=== PATIENT | female | born 2000 | race Hispanic/Latino ===

== ENCOUNTER 2021-09-28 05:41 | Emergency (ER) | payer BC ==
[~2021-09-28] VITALS: Ht 167.6 cm; Wt 77.6 kg
[2021-09-28] MEDS ORDERED: NAPROXEN 500 MG TABLET PO ONE (07:30)
[2021-09-28] MEDS ORDERED: DICL20GE TP (07:31)
[2021-09-28] MEDS ORDERED: NAPROXEN 250 MG TAB ONE (07:39)
[2021-09-28 07:48] VITALS: BP 118/72
== END 2021-09-28 08:12 | disposition home or self-care (01) ==
LOC: EDH 05:41
DX: S29.012A Strain of muscle and tendon of back wall of thorax, initial encounter (principal); K62.89 Other specified diseases of anus and rectum; M19.90 Unspecified osteoarthritis, unspecified site; Z79.1 Long term (current) use of non-steroidal anti-inflammatories (NSAID); X58.XXXA Exposure to other specified factors, initial encounter; Y93.89 Activity, other specified; Y92.89 Other specified places as the place of occurrence of the external cause; Y99.8 Other external cause status
CPT/HCPCS: 99282